=== PATIENT | male | born 1945 | race Caucasian/White ===

== ENCOUNTER 2019-02-14 09:49 | Inpatient (IN) | payer OTHER ==
[2019-02-12 15:12] LABS: COLOR,URINE YELLOW (Yellow); GLUCOSE, URINE 250 mg/dl (Neg); KETONES,URINE TRACE mg/dl (Neg); LEUKOCYTE ESTERASE ,URINE SMALL (Neg); NITRITES, URINE NEGATIVE (Neg); OCCULT BLOOD,URINE NEGATIVE (Neg); PH,URINE 5.5 (4.8-8.0); PROTEIN,URINE NEGATIVE (Neg)
[2019-02-12 15:15] LABS: BASOPHILS % (AUTO) 0.4 % (0-1); EOSINOPHILS % (AUTO) 0.6 % (0-6); LYMPHOCYTES # (AUTO) 1.1 X10'3 (1.1-4.8); LYMPHOCYTES % (AUTO) 18.7 % (21-51); MEAN CORPUSCULAR HEMOGLOBIN 31.4 PG (27.0-31.0); MEAN CORPUSCULAR HGB CONC 33.9 g/dL (33.0-36.5); MEAN CORPUSCULAR VOLUME 92.6 FL (78-98); MEAN PLATELET VOLUME 7.4 FL (7.4-10.4); MONOCYTES # (AUTO) 0.4 X10'3 (0-0.9); MONOCYTES % (AUTO) 6.4 % (2-12); NEUTROPHILS # (AUTO) 4.5 X10'3 (1.8-7.7); NEUTROPHILS % (AUTO) 73.9 % (42-75); PRE OP HEMOGLOBIN 15.6 g/dL (14.0-17.9); PRE OP PLATELET COUNT 233 X10'3 (140-440); RED BLOOD COUNT 4.97 X10'6 (4.70-6.10); RED CELL DISTRIBUTION WIDTH 13.5 % (11.5-14.5)
[2019-02-12 15:17] LABS: UA COLLECTION TYPE CLN CATCH MIDSTREAM
[2019-02-12 15:18] LABS: CLARITY,URINE SLIGHTLY CLOUDY (Clear); MUCUS STRANDS FEW /LPF (Neg); SQUAMOUS EPITHELIAL CELL,UR FEW /LPF (FEW)
[2019-02-12 15:19] LABS: BACTERIA,URINE 1+ /HPF (Neg); RBC,URINE 0-2 /HPF (0-2)
[2019-02-12 15:26] LABS: ALBUMIN 3.6 G/DL (3.4-5.0); ALBUMIN/GLOBULIN RATIO 0.9 (1.1-1.5); ALKALINE PHOSPHATASE 111 IU/L (46-116); BLOOD UREA NITROGEN 23 MG/DL (7-18); BUN/CREATININE RATIO 19.2 (5.4-32.0); CALCIUM 9.1 MG/DL (8.5-10.1); CHLORIDE 105 MMOL/L (99-107); PRE OP ALT 46 U/L (30-65); PRE OP ANION GAP 12 (8-16); PRE OP AST 28 U/L (10-37); PRE OP BILIRUB, TOTAL 0.4 MG/DL (0.0-1.0); PRE OP GLUCOSE 170 MG/DL (70-104); PRE OP POTASSIUM 4.1 MMOL/L (3.4-5.1); PRE OP SODIUM 141 MMOL/L (135-145); TOTAL CARBON DIOXIDE 24.3 MMOL/L (24-32); TOTAL PROTEIN 7.5 G/DL (6.4-8.2); eGFR 60 ML/MIN
[2019-02-14] VITALS (14 sets, daily range): BP systolic 127–155; BP diastolic 67–108
[~2019-02-14] VITALS: Ht 177.8 cm; Wt 110.2 kg
[~2019-02-14 09:49] MED LIST: ALBU6.7H9 INH; ASPI-1265 PO; ATOR40TA PO; BUDE10.2 INH; CHOL10002 PO; CYAN-51 PO; DICL100G15 TOP; DOCUMENT DATE & TIME OF BETA-BLOCKER PO ONE; DULO-31 PO; FERR324T3; FISH12002 PO; FLO0.4C PO; FLUT16SP2 BOTHNARES; FOLI1TAB16 PO; HYDR25TA4 PO; LIDOCAINE 5% PATCH; LORA10TA7 PO; METO50TA7 PO; MULT1TAB74 PO; POTA10CA44 PO; SERT50TA PO; TRAM50TA2 PO; TRAZ150T78 PO; TRIA15OI9 TOP; ceFOXitin 2 GM ADDVANTGE BAG 50 ML IV ONE
[2019-02-14] MEDS ORDERED: ceFOXitin 2 GM ADDVANTGE BAG 50 ML IV ONE (10:00)
[2019-02-14] MEDS ORDERED: famotidine 20mg tablet PO ONE (10:00)
[2019-02-14] MEDS ORDERED: ringers solution, lacted 1,000 ML IV SCH ×2 (10:00→14:56)
[2019-02-14] MEDS ORDERED: traMADol 50MG tablet PO ONE (10:20)
[2019-02-14] MEDS ORDERED: BUPIVAcaine/PF 2.5 mg/ml (0.25%) 30ml vial ONE (13:05)
[2019-02-14] MEDS ORDERED: ceFAZolin 1000mg inj ONE (13:05)
[2019-02-14] MEDS ORDERED: fentaNYL /PF 50mcg/ml 5ml ampule ONE (14:00)
[2019-02-14] MEDS ORDERED: midazolam 2 mg/2 ml injection ONE (14:00)
[2019-02-14] MEDS ORDERED: propofol inj 20 ML IV ONE (14:02)
[2019-02-14] MEDS ORDERED: sevoflurane 250ml liquid IH ONE (14:03)
[2019-02-14] MEDS ORDERED: rocuronium 10mg/ml inj IV ONE ×2 (14:03→14:04)
[2019-02-14] MEDS ORDERED: glycopyrrolate 0.2mg/ml inj ONE (14:03)
[2019-02-14] MEDS ORDERED: dexamethasone sod phosphate 4mg/ml inj. ONE (14:30)
[2019-02-14] MEDS ORDERED: ondansetron/PF 4mg/2ml inj IV PRN (15:00)
[2019-02-14] MEDS ORDERED: morphine 4 MG/ML inj SYRINge IV PRN ×2 (15:00)
[2019-02-14] MEDS ORDERED: proCHLORperazine 10 MG/2 ml inj IV PRN (15:00)
[2019-02-14] MEDS ORDERED: meperidine/PF 25mg/ml syringe IV PRN ×3 (15:00)
[2019-02-14] MEDS ORDERED: fentaNYL/PF 50MCG/1 ML 2ML syringe ONE (17:21)
[2019-02-14] MEDS ORDERED: neostigmine methylsulfate 1 MG/ML 10ml vial ONE (17:35)
[2019-02-14] MEDS ORDERED: acetaminophen 1,000mg/100ml IV 100 ML IV ONE (17:44)
--- NOTE | 2019-02-14 18:08 | NUR ---
Received from OR via surgical bed, accompanied by Anesthesiologist John and report given by Anesthesiolgist. VS stable 10L O2 mask and sats 97%. 20G left forearm IV present running IVF LR at 100cc/hr. SCDs on, yan catheter draining yellow urine. Pt responsding to questions still sleepy. Midline incision to abd with island dressing CDI mild spaots of drainage within borders - will continue to monitor.
--- NOTE | 2019-02-14 19:08 | NUR ---
Report called to receiving nurse JOEL Fournier. Transferred via surgical bed. Belongings sent with patient at bedside. Special Issues communicated to receiving nurse. Pt VS remain stable, pt alert and oriented, midline incision visualized with receiving RN, tele 18 placed on patient, SCDs on catheter draining, BLL call light within reach. Dentures in chart. at bedside. All questions answered.
[2019-02-14] MEDS ORDERED: naloxone 0.4 mg/ml inj IV PRN (21:40)
[2019-02-14] MEDS: HYDROmorphone/NS 1 mg/ml CADD 50 ML IV SCH ×2 (22:13→23:00)
[2019-02-15] VITALS: BP 134/73
[2019-02-15] MEDS: HYDROmorphone/NS 1 mg/ml CADD 50 ML IV SCH ×6 (01:00→11:00)
--- NOTE | 2019-02-15 06:28 | NUR ---
Problems reprioritized. Patient report given, questions answered & plan of care reviewed with Emily MALDONADO.
--- NOTE | 2019-02-15 06:34 | NUR ---
Patient in room [facility]. I have received report from DENAE MALDONADO and had the opportunity to ask questions and assume patient care.
[2019-02-15 06:55] VITALS: BP 137/70
--- NOTE | 2019-02-15 07:00 | NUR ---
PHARMACY CALLED CHECKING ON PT'S MED REC. IT WAS FAXED TO PHARMACY AFTER SHE CALLED
--- NOTE | 2019-02-15 07:02 | NUR ---
WENT TO CHECK CADD SETTINGS AND PT HAS TAKEN OFF HIS OXYGEN. I ASKED HIM IF HE WANTED ME TO PUT IT ON AND HE SAID NO. HAVING STUDENT NURSE DO A FULL SET OF V/S NOW.
--- NOTE | 2019-02-15 07:32 | NUR ---
rechecked v/s. at ra pt is satting 91% will keep monitoring
[2019-02-15] MEDS: fluticasone nasal spray 16GM bottle NS SCH (08:00)
[2019-02-15] MEDS ORDERED: potassium chloride 10mEq CAPSULE.SA PO SCH (08:00)
[2019-02-15] MEDS ORDERED: triamcinolone acet 0.1% cream 15gm TP PRN (08:00)
[2019-02-15] MEDS ORDERED: non-formulary drug (Diclofenac Sodium (Voltaren) 1 GM) TOP SCH (08:00)
[2019-02-15] MEDS ORDERED: ferrous gluconate 324mg tablet PO SCH ×2 (08:00→08:30)
--- NOTE | 2019-02-15 08:19 | NUR ---
pulled pt's ferrous gluconate to give. the order states 325mg dose. the [facility] gave me 324mg dose. paged pharmacy to verify dosage. Addendum: 02/15/19 at 0822 by Emily Mott RN also the [facility] promts you to take two tabs. i did, then checked order and pout one back. waiting to here from pharmacy
--- NOTE | 2019-02-15 08:27 | NUR ---
flonase is not in pt's specific box or in our blue inbox, had another nurse check to make sure. messaged pharmacy. waiting for med to be available then i will admin.
[2019-02-15] MEDS: duloxetine 30mg CAPSULE.DR PO SCH (08:50)
[2019-02-15] MEDS: folic acid 1mg tablet PO SCH (08:50)
[2019-02-15] MEDS: loratadine 10mg tablet PO SCH (08:50)
[2019-02-15] MEDS: aspirin 81mg tab.chew PO SCH (08:50)
[2019-02-15] MEDS: HYDROchlorothiazide 25mg tablet PO SCH (08:52)
[2019-02-15] MEDS: multivitamins, therapeutics tablet PO SCH (08:52)
[2019-02-15] MEDS: vitamin D (cholecalciferol) 1,000 unit tablet PO SCH (08:53)
[2019-02-15] MEDS: cyanocobalamin 500mcg tablet PO SCH (08:53)
[2019-02-15] MEDS: LIDOcaine 5% patch TP SCH (08:54)
[2019-02-15] MEDS: OMEGA-3/DHA/EPA/FISH OIL 1 EACH CAPSULE.DR PO SCH ×2 (09:49→19:19)
[2019-02-15] MEDS ORDERED: potassium chloride 10mEq ER tablet PO SCH ×2 (09:55→09:56)
[2019-02-15] MEDS: potassium chloride 10mEq ER tablet PO SCH ×2 (10:06→19:20)
[2019-02-15] MEDS: ferrous gluconate 324mg tablet PO SCH ×2 (10:06→21:13)
[2019-02-15] MEDS: albuterol 2.5 MG/3 ML nebule NEB SCH ×2 (10:28→10:30)
[2019-02-15] MEDS: budesonide 0.5mg/2ml UD nebule IH SCH ×2 (10:28→10:30)
[2019-02-15 11:00] VITALS: BP 135/57
[2019-02-15] MEDS: CADD PCA waste documentation MC PRN ×2 (12:27→12:28)
[2019-02-15] MEDS: HYDROcodone/acetaminophen 10/325mg tab PO PRN (14:31)
--- NOTE | 2019-02-15 17:22 | NUR ---
PT INSISTED OF REGULAR DIET INSTEAD OF FULL LIQUIDS. HE ATE AND IS GETTING QUITE DISTENDED. HE FEELS LIKE THERE IS A LOT OF FLATULUS BUILDING UP. I ENCOURAGED HIM TO AMBULATE. HE IS
[2019-02-15] MEDS: traMADol 50MG tablet PO PRN (17:33)
--- NOTE | 2019-02-15 17:48 | NUR ---
Problems reprioritized. Patient report given, questions answered & plan of care reviewed with PRUDENCE RN.
--- NOTE | 2019-02-15 18:21 | NUR ---
Patient in room [facility]. I have received report from Emily MALDONADO and had the opportunity to ask questions and assume patient care.
[2019-02-15 20:00] VITALS: BP 136/70
[2019-02-15] MEDS ORDERED: atorvastatin 20mg tablet PO SCH (21:00)
[2019-02-15] MEDS ORDERED: tamsulosin 0.4mg capsule PO SCH (21:00)
[2019-02-15] MEDS ORDERED: traZODone 150mg tablet PO SCH (21:00)
[2019-02-15] MEDS ORDERED: sertraline 50mg tablet PO SCH (21:00)
[2019-02-15] MEDS ORDERED: metoprolol succinate 25mg (24-HOUR) SR. Tablet PO SCH (21:00)
[2019-02-16 00:34] VITALS: BP 122/77
[2019-02-16] MEDS: HYDROcodone/acetaminophen 10/325mg tab PO PRN ×2 (03:11→08:59)
--- NOTE | 2019-02-16 06:27 | NUR ---
Problems reprioritized. Patient report given, questions answered & plan of care reviewed with Ludy MALDONADO. Patient is feeling much better and is awake watching TV.
--- NOTE | 2019-02-16 06:39 | NUR ---
Patient in room [facility]. I have received report from Reina and had the opportunity to ask questions and assume patient care.
[2019-02-16] MEDS: traMADol 50MG tablet PO PRN (06:47)
[2019-02-16] MEDS: fluticasone nasal spray 16GM bottle NS SCH (08:00)
[2019-02-16] MEDS: vitamin D (cholecalciferol) 1,000 unit tablet PO SCH (08:03)
[2019-02-16] MEDS: folic acid 1mg tablet PO SCH (08:04)
[2019-02-16] MEDS: OMEGA-3/DHA/EPA/FISH OIL 1 EACH CAPSULE.DR PO SCH (08:04)
[2019-02-16] MEDS: loratadine 10mg tablet PO SCH (08:04)
[2019-02-16] MEDS: LIDOcaine 5% patch TP SCH (08:04)
[2019-02-16] MEDS: ferrous gluconate 324mg tablet PO SCH (08:04)
[2019-02-16] MEDS: aspirin 81mg tab.chew PO SCH (08:04)
[2019-02-16] MEDS: cyanocobalamin 500mcg tablet PO SCH (08:04)
[2019-02-16] MEDS: multivitamins, therapeutics tablet PO SCH (08:04)
[2019-02-16] MEDS: duloxetine 30mg CAPSULE.DR PO SCH (08:04)
[2019-02-16] MEDS: HYDROchlorothiazide 25mg tablet PO SCH (08:04)
[2019-02-16] MEDS: potassium chloride 10mEq ER tablet PO SCH (08:04)
[2019-02-16 11:00] VITALS: BP 107/61
--- NOTE | 2019-02-16 12:57 | NUR ---
IV dc'd. Script, follow up appointment, home care, diet gone over with pt and . Pt will make his own follow up appointment. Discharged home via wc with .
== END 2019-02-16 11:55 | disposition home or self-care (01) | DRG 358 ==
LOC: PAS IN 09:49 → EDSTATUS 13:00 → SUR 3N 19:31
PROVIDERS: ADMIT Surgery; ATTEND Surgery
PROC: 0DBL8ZX Excision of Transverse Colon, Via Natural or Artificial Opening Endoscopic, Diagnostic (ICD-10-PCS; 2019-02-14)
PROC: 0DBK8ZX Excision of Ascending Colon, Via Natural or Artificial Opening Endoscopic, Diagnostic (ICD-10-PCS; principal; 2019-02-14 14:03)
PROC: 0DBU4ZZ Excision of Omentum, Percutaneous Endoscopic Approach (ICD-10-PCS; 2019-02-15)
DX: D12.6 Benign neoplasm of colon, unspecified (principal); K57.90 Diverticulosis of intestine, part unspecified, without perforation or abscess without bleeding; I10 Essential (primary) hypertension; F32.9 Major depressive disorder, single episode, unspecified; G89.29 Other chronic pain; I25.10 Atherosclerotic heart disease of native coronary artery without angina pectoris; M19.90 Unspecified osteoarthritis, unspecified site; K66.0 Peritoneal adhesions (postprocedural) (postinfection); Z98.84 Bariatric surgery status; Z87.891 Personal history of nicotine dependence
CPT/HCPCS: 36415; 45380; 45381; 45385; 80053; 81001; 82948; 85025; 86885; 87081; 87088; 94640; 94760; A4215; A4618; A7000; C1758; C1773; G0378; J0131; J0690; J0694; J1100; J1170; J2175; J2250; J2704; J2710; J3010; J3490; J7120; J7626

== ENCOUNTER 2020-08-26 13:53 | Outpatient (CLI) | payer OTHER ==
[~2020-08-26 13:53] MED LIST changes: -DOCUMENT DATE & TIME OF BETA-BLOCKER PO ONE; +MULT-620 PO; -MULT1TAB74 PO; -ceFOXitin 2 GM ADDVANTGE BAG 50 ML IV ONE
== END 2020-08-26 23:59 | disposition home or self-care (01) ==
LOC: RAD 13:53
PROVIDERS: ATTEND Student in an Organized Health Care Education/Training Program
DX: K21.9 Gastro-esophageal reflux disease without esophagitis (principal); R13.14 Dysphagia, pharyngoesophageal phase
CPT/HCPCS: 74230

== ENCOUNTER 2021-02-03 15:07 | Emergency (ER) | payer OTHER ==
[~2021-02-03] VITALS: Ht 177.8 cm; Wt 94.3 kg
[2021-02-03 15:31] VITALS: BP 158/79
== END 2021-02-03 19:00 | disposition left against medical advice (07) ==
LOC: ER 15:07
DX: H53.8 Other visual disturbances (principal); Z79.82 Long term (current) use of aspirin; Z79.899 Other long term (current) drug therapy; Z53.21 Procedure and treatment not carried out due to patient leaving prior to being seen by health care provider

== ENCOUNTER 2023-10-20 01:08 | Emergency (ER) | payer OTHER, MEDICARE ==
[~2023-10-20] VITALS: Ht 177.8 cm; Wt 108.2 kg
[~2023-10-20 01:08] MED LIST changes: +ALBU6.7H14 INH; -ALBU6.7H9 INH; -ASPI-1265 PO; -ATOR40TA PO; -BUDE10.2 INH; +CLOP75TA34 PO; +CYAN-104 PO; -CYAN-51 PO; +DOCU-91 PO; +DONE10TA19 PO; -FOLI1TAB16 PO; +FOLI1TAB27 PO; +IPRA3AMP31 NEB; +KEN0.1O TOP; +LIDO700A47 TOP; -LIDOCAINE 5% PATCH; +MAGN400T56 PO; +MEMA10TA22 PO; +POTA-188 PO; -POTA10CA44 PO; +ROSU20TA73 PO; -SERT50TA PO; +TIOT4MIS2 IH; +TRAZ-251 PO; -TRAZ150T78 PO; -TRIA15OI9 TOP; +TROS20TA4 PO
[2023-10-20 02:50] LABS: BASOPHILS % (AUTO) 0.4 % (0-1); EOSINOPHILS # (AUTO) 0.1 X10'3 (0-0.9); EOSINOPHILS % (AUTO) 0.8 % (0-6); HEMATOCRIT 28.6 % (42.0-52.0); HEMOGLOBIN 9.4 g/dl (14.0-17.9); LYMPHOCYTES # (AUTO) 1.1 X10'3 (1.1-4.8); LYMPHOCYTES % (AUTO) 11.6 % (21-51); MEAN CORPUSCULAR HEMOGLOBIN 29.5 PG (27.0-31.0); MEAN CORPUSCULAR HGB CONC 32.8 g/dL (33.0-36.5); MEAN CORPUSCULAR VOLUME 89.8 FL (78-98); MONOCYTES # (AUTO) 0.9 X10'3 (0-0.9); MONOCYTES % (AUTO) 9.3 % (2-12); NEUTROPHILS # (AUTO) 7.2 X10'3 (1.8-7.7); NEUTROPHILS % (AUTO) 77.9 % (42-75); PLATELET COUNT 443 X10'3 (140-440); RED BLOOD COUNT 3.19 X10'6 (4.70-6.10); RED CELL DISTRIBUTION WIDTH 14.4 % (11.5-14.5); WHITE BLOOD COUNT 9.2 X10'3 (4.5-11.0)
[2023-10-20 03:02] LABS: ALANINE AMINOTRANSFERASE 49 U/L (12-78); ALBUMIN 1.8 G/DL (3.4-5.0); ALBUMIN/GLOBULIN RATIO 0.4 (1.1-1.5); ALKALINE PHOSPHATASE 89 IU/L (46-116); ANION GAP 5 (8-16); ASPARTATE AMINO TRANSFERASE 41 U/L (10-37); BILIRUBIN,TOTAL 0.4 MG/DL (0.1-1.0); BLOOD UREA NITROGEN 19 MG/DL (7-18); BUN/CREATININE RATIO 20.4 (10.0-20.0); CALCIUM 8.4 MG/DL (8.5-10.1); CHLORIDE 105 MMOL/L (99-107); CREATININE 0.93 MG/DL (0.60-1.10); GLUCOSE 104 MG/DL (70-104); POTASSIUM 3.8 MMOL/L (3.5-5.1); SODIUM 138 MMOL/L (135-145); TOTAL CARBON DIOXIDE 27.7 MMOL/L (24-32); TOTAL PROTEIN 6.4 G/DL (6.4-8.2); eCRCL 70 ML/MIN; eGFR 79 ML/MIN
[2023-10-20] MEDS ORDERED: iohexol 300mg/ml 100ml inj. ONE (03:15)
[2023-10-20 03:22] LABS: BILIRUBIN,URINE NEGATIVE (Neg); CLARITY,URINE CLOUDY (Clear); COLOR,URINE YELLOW (Yellow); GLUCOSE, URINE NEGATIVE (Neg); KETONES,URINE NEGATIVE (Neg); LEUKOCYTE ESTERASE ,URINE TRACE (Neg); NITRITES, URINE NEGATIVE (Neg); OCCULT BLOOD,URINE LARGE (Neg); PROTEIN,URINE NEGATIVE (Neg); UROBILINOGEN,URINE >=8.0 E.U/dL (0.2-1.0)
[2023-10-20 03:23] LABS: UA COLLECTION TYPE STRAIGHT CATH
[2023-10-20 03:30] LABS: RBC,URINE 50-100 /HPF (0-2)
[2023-10-20 03:33] LABS: BACTERIA,URINE FEW /HPF (Neg); MUCUS STRANDS MANY /LPF (Neg); SQUAMOUS EPITHELIAL CELL,UR FEW /LPF (FEW); WBC CLUMPS,URINE FEW /HPF (NEGATIVE)
[2023-10-20 03:34] LABS: STARCH,URINE FEW /HPF (NEGATIVE)
[2023-10-20] MEDS: CefTRIAXone/D5W-Rocephin 1gm 50 ML IV ONE (05:13)
[2023-10-20 06:13] VITALS: TEMP 97.9
[2023-10-20] MEDS ORDERED: CEPH-585 PO (06:21)
[2023-10-20 10:02] VITALS: BP 144/74; PULSE 75; RESP 16; O2SAT 96
== END 2023-10-20 10:03 | disposition home or self-care (01) ==
LOC: ER 01:18
DX: R50.9 Fever, unspecified (principal); Z20.822 Contact with and (suspected) exposure to COVID-19; R10.9 Unspecified abdominal pain; Z88.8 Allergy status to other drugs, medicaments and biological substances; Z79.899 Other long term (current) drug therapy; Z79.1 Long term (current) use of non-steroidal anti-inflammatories (NSAID)
CPT/HCPCS: 36415; 71045; 74177; 80053; 81001; 83605; 84145; 85025; 87040; 87088; 87811; 96365; 99285; J0696; Q9967; A4338; C1758

== ENCOUNTER 2023-11-03 19:21 | Emergency (ER) | payer OTHER, MEDICARE ==
[~2023-11-03] VITALS: Ht 177.8 cm; Wt 235.0 kg
[2023-11-03 20:45] LABS: ALBUMIN 2.6 G/DL (3.4-5.0); ANION GAP 5 (8-16); BASOPHILS # (AUTO) 0.1 X10'3 (0-0.2); BASOPHILS % (AUTO) 0.5 % (0-1); BLOOD UREA NITROGEN 18 MG/DL (7-18); BUN/CREATININE RATIO 16.8 (10.0-20.0); CALCIUM 8.8 MG/DL (8.5-10.1); CHLORIDE 100 MMOL/L (99-107); CREATININE 1.07 MG/DL (0.60-1.10); EOSINOPHILS # (AUTO) 0.1 X10'3 (0-0.9); EOSINOPHILS % (AUTO) 0.5 % (0-6); GLUCOSE 129 MG/DL (70-104); HEMATOCRIT 33.3 % (42.0-52.0); LYMPHOCYTES # (AUTO) 0.7 X10'3 (1.1-4.8); LYMPHOCYTES % (AUTO) 6.2 % (21-51); MEAN CORPUSCULAR HEMOGLOBIN 28.5 PG (27.0-31.0); MEAN CORPUSCULAR HGB CONC 33.2 g/dL (33.0-36.5); MEAN CORPUSCULAR VOLUME 86.1 FL (78-98); MEAN PLATELET VOLUME 6.9 FL (7.4-10.4); MONOCYTES # (AUTO) 1.1 X10'3 (0-0.9); NEUTROPHILS # (AUTO) 9.2 X10'3 (1.8-7.7); NEUTROPHILS % (AUTO) 82.8 % (42-75); PLATELET COUNT 320 X10'3 (140-440); POTASSIUM 3.8 MMOL/L (3.5-5.1); RED BLOOD COUNT 3.87 X10'6 (4.70-6.10); RED CELL DISTRIBUTION WIDTH 15.4 % (11.5-14.5); SODIUM 134 MMOL/L (135-145); TOTAL CARBON DIOXIDE 28.9 MMOL/L (24-32); WHITE BLOOD COUNT 11.1 X10'3 (4.5-11.0); eCRCL 61 ML/MIN; eGFR 67 ML/MIN
[2023-11-03] MEDS: HYDROcodone/acetaminophen 5mg/325mg tablet PO ONE (22:16)
[2023-11-03] MEDS: traMADol 50MG tablet PO ONE (23:54)
[2023-11-04 01:43] VITALS: BP 131/71; PULSE 88; RESP 15; TEMP 98.6; O2SAT 98
== END 2023-11-04 01:45 | disposition home or self-care (01) ==
LOC: ER 19:22
DX: S02.2XXA Fracture of nasal bones, initial encounter for closed fracture (principal); R04.0 Epistaxis; I10 Essential (primary) hypertension; J44.9 Chronic obstructive pulmonary disease, unspecified; Z88.8 Allergy status to other drugs, medicaments and biological substances; Z79.899 Other long term (current) drug therapy; Z90.49 Acquired absence of other specified parts of digestive tract; Z87.891 Personal history of nicotine dependence; W19.XXXA Unspecified fall, initial encounter; Y93.89 Activity, other specified; Y92.89 Other specified places as the place of occurrence of the external cause; Y99.8 Other external cause status
CPT/HCPCS: 12014; 36415; 70450; 70486; 72125; 80048; 85025; 99285; A6222